=== PATIENT | female | born 1985 | race Hispanic/Latino ===

== ENCOUNTER 2017-09-22 18:11 | Emergency (ER) | payer OTHER, SELFPAY ==
[2017-09-22 19:42] LABS: Absolute Lymphocytes (CBC) 1.9 K/uL (0.7-4.9); Absolute Monocytes 0.7 K/uL (0.1-1.3); Absolute Neutrophil 8.7 K/uL (1.8-8.0); Basophils % 0.5 % (0-1.3); Eosinophils % 0.6 % (0-4.4); Hematocrit 42.9 % (36.0-45.0); Lymphocytes % 16.6 % (15.3-44.8); MCH 31.6 pg (27.0-35.0); MCV 93.2 fL (80-100); MPV 11.6 fL (7.6-11.3); Monocytes % 5.7 % (3.3-12.3)
[2017-09-22 20:07] LABS: Urine Blood NEGATIVE (NEG); Urine Glucose NEGATIVE (NEG); Urine Protein NEGATIVE (NEG); Urine pH 5.5 (5.0-7.0)
[2017-09-22 20:12] LABS: ALT/SGPT 32 U/L (12-78); AST/SGOT 29 U/L (15-37); Albumin 4.3 g/dL (3.4-5.0); Alkaline Phosphatase 62 U/L (45-117); BUN Blood Urea Nitrogen 24 mg/dL (7-18); Bicarbonate 27 mmol/L (21-32); Bilirubin Direct 0.1 mg/dL (0-0.2); Bilirubin Total 0.3 mg/dL (0.2-1.0); CKMB Creatine Kinase MB < 1.0 ng/mL (0.3-3.6); Creatine Phosphokinase 104 U/L (26-192); Glucose Level 80 mg/dL (74-106); Magnesium 2.1 mg/dL (1.8-2.4); Potassium 4.1 mmol/L (3.5-5.1); Sodium Level 135 mmol/L (136-145)
--- NOTE | 2017-09-22 21:06 | RAD REPORT ---
EXAM DESCRIPTION: RAD - Chest Single View - 09/22/2017 7:18 pm CLINICAL HISTORY: Syncope, shortness of breath COMPARISON: None. TECHNIQUE: AP portable chest image was obtained . FINDINGS: Lungs are clear. Heart and vasculature are normal. No measurable pleural effusion and no p neumothorax. No acute bone finding. There is a mild right convex curvature of the lower thoracic spin e. No acute aortic findings suspected. IMPRESSION: No acute cardiopulmonary process.
--- NOTE | 2017-09-22 21:40 | EDPHYS ---
Physician Documentation [facility] Name: Aura Marina Age: 32 yrs Sex: Female : 1985 Arrival Date: 09/22/2017 Time: 18:13 Bed 8 Private MD: Out, [facility] ED Physician Sebastien Pizano HPI: 09/22 21:03 This 32 yrs old Female presents to ER via Ambulatory with complaints of jr8 Syncope. 21:03 The patient has experienced syncope, collapsed, lost consciousness. Onset: The jr8 symptoms/episode began/occurred acutely, today. Duration: This was a single episode. Context: the episode(s) was witnessed, by family, occurred at home, occurred while the patient was standing, Just prior to the episode the patient experienced no apparent symptoms. Associated signs and symptoms: The patient has no apparent associated signs or symptoms. Current symptoms: Currently, the patient is not experiencing any symptoms, the patient feels back to baseline, no decreased level of consciousness, no confusion, no dysphasia, no headache, no paralysis, no visual changes. The patient has not experienced similar symptoms in the past. The patient has not recently seen a physician. Patient stated that she was standing outside smoking a cigarette when she passed out all of a sudden. Stated that she currently under the care of an EP and roof slater for sick sinus syndrome. Stated that she is suppose to have pacemaker at some point but has not yet. Had told her that this may happen eventually. ADOBE MAKER: 18:37 LMP N/A - control method aj1 Historical: - Allergies: 18:37 No Known Allergies; aj1 - Home Meds: 18:37 None [Active]; aj1 - PMHx: 18:37 "heart condition"; aj1 - PSHx: 18:37 eye surgery; aj1 - Immunization history:: Flu vaccine is up to date. - Social history:: Smoking status: Patient uses tobacco products, denies chronic smoking, but will smoke occasionally. - Ebola Screening: : Patient denies travel to an Ebola-affected area in the 21 days before illness onset. ROS: 21:03 Eyes: Negative for injury, pain, redness, and discharge, ENT: Negative for injury, jr8 pain, and discharge, Neck: Negative for injury, pain, and swelling, Cardiovascular: Negative for chest pain, palpitations, and edema, Respiratory: Negative for shortness of breath, cough, wheezing, and pleuritic chest pain, Abdomen/GI: Negative for abdominal pain, nausea, vomiting, diarrhea, and constipation, Back: Negative for injury and pain, MS/Extremity: Negative for injury and deformity, Skin: Negative for injury, rash, and discoloration. 21:03 Neuro: Positive for syncope, Negative for altered mental status, dizziness, gait disturbance, headache, hearing loss, numbness, seizure activity, speech changes, tingling, tinnitus, tremor, visual changes, weakness. Exam: 21:03 Eyes: Pupils equal round and reactive to light, extra-ocular motions intact. Lids and jr8 lashes normal. Conjunctiva and sclera are non-icteric and not injected. Cornea within normal limits. Periorbital areas with no swelling, redness, or edema. ENT: Nares patent. No nasal discharge, no septal abnormalities noted. Tympanic membranes are normal and external auditory canals are clear. Oropharynx with no redness, swelling, or masses, exudates, or evidence of obstruction, uvula midline. Mucous membranes moist. Neck: Trachea midline, no thyromegaly or masses palpated, and no cervical lymphadenopathy. Supple, full range of motion without nuchal rigidity, or vertebral point tenderness. No Meningismus. Respiratory: Lungs have equal breath sounds bilaterally, clear to auscultation and percussion. No rales, rhonchi or wheezes noted. No increased work of breathing, no retractions or nasal flaring. Abdomen/GI: Soft, non-tender, with normal bowel sounds. No distension or tympany. No guarding or rebound. No evidence of tenderness throughout. Back: No spinal tenderness. No costovertebral tenderness. Full range of motion. Skin: Warm, dry with normal turgor. Normal color with no rashes, no lesions, and no evidence of cellulitis. MS/ Extremity: Pulses equal, no cyanosis. Neurovascular intact. Full, normal range of motion. Neuro: Awake and alert, GCS 15, oriented to person, place, time, and situation. Cranial nerves II-XII grossly intact. Motor strength 5/5 in all extremities. Sensory grossly intact. Cerebellar exam normal. Normal gait. 21:03 Cardiovascular: Rate: bradycardic, Rhythm: regular, Pulses: Pulses are 2+ in bilateral radial, brachial, femoral, popliteal, posterior tibial and and dorsalis pedis arteries.. Heart sounds: normal, Edema: is not appreciated, JVD: is not appreciated. Vital Signs: 18:37 BP 131 / 63; Pulse 40; Resp 18; Temp 97.5(TE); Pulse Ox 100% ; Weight 67.13 kg; Height aj1 5 ft. 2 in. (157.48 cm) (R); Pain 0/10; 19:04 BP 133 / 89; Pulse 66; Resp 17; Pulse Ox 100% ; mg2 20:11 BP 118 / 55; Pulse 49; Resp 18; Pulse Ox 100% on R/A; Pain 0/10; mg2 21:00 BP 115 / 69; Pulse 50; Resp 18; Pulse Ox 100% on R/A; Pain 0/10; mg2 21:54 BP 115 / 78; Pulse 55; Resp 18; Pulse Ox 100% on R/A; Pain 0/10; mg2 18:37 Body Mass Index 27.07 (67.13 kg, 157.48 cm) aj1 MDM: 18:42 Patient medically screened. jr8 21:38 Data reviewed: vital signs, nurses notes, lab test result(s), EKG, radiologic studies, jr8 plain films, and as a result, I will discharge patient. Data interpreted: Pulse oximetry: on room air is 100 %. Interpretation: normal. Counseling: I had a detailed discussion with the patient and/or guardian regarding: the historical points, exam findings, and any diagnostic results supporting the discharge/admit diagnosis, lab results, radiology results, the need for outpatient follow up, a roof slater, to return to the emergency department if symptoms worsen or persist or if there are any questions or concerns that arise at home. ED course: Patient remains asymptomatic while in ED. Able to walk without dizziness or near syncope. Labs and images normal. Will f/u with roof slater . 09/22 18:43 Order name: Ckmb; Complete Time: 20:32 09/22 18:43 Order name: Basic Metabolic Panel; Complete Time: 20:32 09/22 18:43 Order name: CBC with Diff; Complete Time: 20:32 09/22 18:43 Order name: CPK; Complete Time: 20:32 09/22 18:43 Order name: LFT's; Complete Time: 20:32 jr09/22 18:43 Order name: Magnesium; Complete Time: 20:32 09/22 18:43 Order name: PT-INR; Complete Time: 20:32 09/22 18:43 Order name: Troponin (emerg Dept Use Only); Complete Time: 20:32 09/22 18:43 Order name: XRAY Chest (1 view); Complete Time: 21:07 09/22 18:43 Order name: EKG; Complete Time: 18:43 09/22 18:43 Order name: Cardiac monitoring; Complete Time: 18:51 09/22 20:00 Order name: Urine Dipstick--Ancillary (enter results); Complete Time: 20:32 09/22 20:00 Order name: Urine --Ancillary (enter results); Complete Time: 20:32 09/22 20:32 Order name: Urine Microscopic Only [facility] 09/22 18:43 Order name: EKG - Nurse/Tech; Complete Time: 19:28 09/22 18:43 Order name: IV Saline Lock; Complete Time: 19:28 09/22 18:43 Order name: Labs collected and sent; Complete Time: 19:28 09/22 18:43 Order name: O2 Per Protocol; Complete Time: 19:20 09/22 18:43 Order name: O2 Sat Monitoring; Complete Time: 19:20 09/22 18:43 Order name: Urine Dipstick-Ancillary (obtain specimen); Complete Time: 19:28 Administered Medications: No medications were administered Disposition: 09/22/17 21:39 Discharged to Home. Impression: Syncope and collapse. - Condition is Stable. - Discharge Instructions: Syncope. - Medication Reconciliation Form, Thank You Letter, Antibiotic Education, Prescription Opioid Use form. - Follow up: Out, of Town; When: 7 - 10 days; Reason: Recheck today's complaints, Continuance of care, Re-evaluation by your physician. - Problem is new. - Symptoms have improved. Addendum: 09/24/2017 14:52 Co-signature as Attending Physician, Sebastien Pizano MD I agree with the assessment and w a plan of care. Signatures: Dispatcher [employer] Sarah Villa RN RN aj1 Balwinder Benjamin PA PA jr8 Sebastien Pizano MD MD wa Gardose, Michele, RN RN mg2 Corrections: (The following items were deleted from the chart) 09/22 21:54 21:39 09/22/2017 21:39 Discharged to Home. Impression: Syncope and collapse. Condition mg2 is Stable. Forms are Medication Reconciliation Form, Thank You Letter, Antibiotic Education, Prescription Opioid Use. Follow up: of Town Out; When: 7 - 10 days; Reason: Recheck today's complaints, Continuance of care, Re-evaluation by your physician. Problem is new. Symptoms have improved. jr8
--- NOTE | 2017-09-22 21:40 | ER ---
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 Today I passed out, I'm pretty sure it from that. The doctor told me I need to get a pacemaker. Transition of care: patient was not received from another setting of care. Onset of symptoms was September 22, 2017 at 17:20. Risk Assessment: Do you want to hurt yourself or someone else? Patient reports no desire to harm self or others. Initial Sepsis Screen: Does the patient meet any 2 criteria? No. Patient's initial sepsis screen is negative. Does the patient have a suspected source of infection? No. Patient's initial sepsis screen is negative. Care prior to arrival: None. 18:34 Method Of Arrival: Ambulatory aj1 18:34 Acuity: NEHAL 2 aj1 Triage Assessment: 18:37 General: Appears in no apparent distress. comfortable, Behavior is calm, cooperative, aj1 appropriate for age. Pain: Denies pain. Neuro: Level of Consciousness is awake, alert, obeys commands, Oriented to person, place, time, situation, Reports a syncopal episode. BUSINESS SUPPORT ASSOCIATE: 18:37 LMP N/A - control method aj1 Historical: - Allergies: 18:37 No Known Allergies; aj1 - Home Meds: 18:37 None [Active]; aj1 - PMHx: 18:37 "heart condition"; aj1 - PSHx: 18:37 eye surgery; aj1 - Immunization history:: Flu vaccine is up to date. - Social history:: Smoking status: Patient uses tobacco products, denies chronic smoking, but will smoke occasionally. - Ebola Screening: : Patient denies travel to an Ebola-affected area in the 21 days before illness onset. Screenin:21 Abuse screen: Denies threats or abuse. Denies injuries from another. Nutritional mg2 screening: No deficits noted. Tuberculosis screening: No symptoms or risk factors identified. Fall Risk Assessment: 19:20 General: Appears in no apparent distress. comfortable, Behavior is calm, cooperative. mg2 Pain: Denies pain. Neuro: Level of Consciousness is awake, alert, obeys commands, Oriented to person, place, time. Cardiovascular: Rhythm is sinus bradycardia. Respiratory: Airway is patent Respiratory effort is even, unlabored, Respiratory pattern is regular, symmetrical. GI: No signs and/or symptoms were reported involving the gastrointestinal system. : No signs and/or symptoms were reported regarding the genitourinary system. EENT: No signs and/or symptoms were reported regarding the EENT system. Derm: Skin is intact, Skin is pink, warm \\T\\ dry. normal. Musculoskeletal: No signs and/or symptoms reported regarding the musculoskeletal system. 20:20 Reassessment: Patient appears in no apparent distress at this time. Patient and/or mg2 family updated on plan of care and expected duration. Pain level reassessed. Patient is alert, oriented x 3, equal unlabored respirations, skin warm/dry/pink. 21:20 Reassessment: Patient appears in no apparent distress at this time. Patient and/or mg2 family updated on plan of care and expected duration. Pain level reassessed. Patient is alert, oriented x 3, equal unlabored respirations, skin warm/dry/pink. Vital Signs: 18:37 BP 131 / 63; Pulse 40; Resp 18; Temp 97.5(TE); Pulse Ox 100% ; Weight 67.13 kg; Height aj1 5 ft. 2 in. (157.48 cm) (R); Pain 0/10; 19:04 BP 133 / 89; Pulse 66; Resp 17; Pulse Ox 100% ; mg2 20:11 BP 118 / 55; Pulse 49; Resp 18; Pulse Ox 100% on R/A; Pain 0/10; mg2 21:00 BP 115 / 69; Pulse 50; Resp 18; Pulse Ox 100% on R/A; Pain 0/10; mg2 21:54 BP 115 / 78; Pulse 55; Resp 18; Pulse Ox 100% on R/A; Pain 0/10; mg2 18:37 Body Mass Index 27.07 (67.13 kg, 157.48 cm) aj1 ED Course: 18:13 Patient arrived in ED. sb2 18:13 Out, of Town is Private Physician. sb2 18:36 Triage completed. aj1 18:37 Arm band placed on Patient placed in an exam room, on telemetry monitor. aj1 18:42 Balwinder Benjamin PA is PHCP. jr8 18:42 Sebastien Pizano MD is Attending Physician. jr8 19:04 Wei Still, FAWAD is Primary Nurse. mg2 19:15 X-ray completed. Portable x-ray completed in exam room. Patient tolerated procedure ml well. 19:16 XRAY Chest (1 view) In Process Unspecified. EDMS 19:28 EKG done, by ED staff, reviewed by Sebastien Pizano MD. ms 19:36 Initial lab(s) drawn, by md, sent to lab. Inserted saline lock: 20 gauge in right ks6 antecubital area, using aseptic technique. Blood collected. Missed attempt(s): 20 gauge in right antecubital area. 21:39 Out, of [facility] is Referral Physician. jr8 21:53 No provider procedures requiring assistance completed. IV discontinued, intact, mg2 bleeding controlled, No redness/swelling at site. Pressure dressing applied. 21:54 Patient has correct armband on for positive identification. Side rails up X2. mg2 Administered Medications: No medications were administered Outcome: 21:39 Discharge ordered by . jr8 21:53 Discharged to home ambulatory, with family. mg2 21:53 Condition: stable 21:53 Discharge instructions given to patient, family, Instructed on discharge instructions, follow up and referral plans. Demonstrated understanding of instructions, follow-up care. 21:54 Patient left the ED. mg2 Addendum: 09/26/2017 18:19 Addendum: Culture Results: Positive urine culture. Patient was not prescribed i w antibiotics at discharge. Report given to DULCE for further evaluation and then to motor vehicle examiner for follow up with patient. Phone call Attempt #1 pt did not answer, left voice mail. Signatures: Dispatcher [employer] EDMS Sarah Day RN RN aj1 Rafaela Ferro, Edith Guerra RN, ms, Melissa ml Roszak, Josh, PA PA jr8 Shagufta Lynn sb2 Wei Still, FAWAD CELESTIN mg2 Rigoberto Cassidy [facility]
[2017-09-22 22:03] LABS: Urine Amorphous Sediment 1+ /HPF (NONE SEEN); Urine Bacteria 20-50 /HPF (<20); Urine Culture Reflex Order REFLEXED; Urine Mucus 1+ /HPF (NONE SEEN); Urine RBC <5 /HPF (NONE SEEN)
--- NOTE | 2017-09-23 06:37 | EKG ---
Test Date: 2017-09-22 Test Time: 19:16:24 Chemistry Associate: MEASUREMENT RESULTS: Intervals: Rate: 54 [place]: 174 QRSD: 122 QT: 468 QTc: 443 [place]: P: 29 [place]: 174 QRS: -15 T: 62 INTERPRETIVE STATEMENTS: Sinus bradycardia Nonspecific intraventricular conduction delay Borderline ECG No previous ECG available for comparison Electronically Signed On 09-23-17 06:37:07 CDT by Jens Gaston
== END 2017-09-22 21:54 | disposition home or self-care (01) ==
LOC: ER 18:11
DX: R55 Syncope and collapse (principal); F17.200 Nicotine dependence, unspecified, uncomplicated
CPT/HCPCS: 36415; 71045; 80048; 80076; 81003; 81015; 81025; 82550; 82553; 83735; 84484; 85025; 85610; 87077; 87086; 87088; 87186; 93005; 99284